=== PATIENT | female | born 1985 | race Caucasian/White ===

== ENCOUNTER 2017-06-22 15:05 | Observation (INO) | payer OTHER ==
[2017-06-22] MEDS ORDERED: NS 1,000 ML IV ONE (15:25)
[2017-06-22 15:37] LABS: PLATELET COUNT 260 10^3/uL (150-400)
--- NOTE | 2017-06-22 16:06 | EDPHY ---
H & P Time Seen by Provider: 06/22/17 15:24 HPI/ROS: CHIEF COMPLAINT: Right lower quadrant pain HISTORY OF PRESENT ILLNESS: 31-year-old female presents with right lower quadrant pain. She awoke early this morning with generalized abdominal discomfort. The discomfort gradually worsened throughout the day and then localized to the right lower quadrant. Associated with subjective fever and chills and lack of appetite. Loose stools this morning. No vomiting, UTI symptoms or vaginal discharge. 2 months , vaginal delivery without complications. REVIEW OF SYSTEMS: Eyes: No visual changes ENT: No sore throat Respiratory: No cough, no shortness of breath Cardiac: No chest pain Genitourinary: No hematuria, no dysuria Musculoskeletal: No leg pain or swelling Skin: No rash Neurological: No headache, no weakness Psychiatric: No depression Past Medical/Surgical History: Denies Social History: , 1 child Smoking Status: Never smoked Physical Exam: General Appearance: Alert, pleasant Eyes: Pupils equal and round, no conjunctival pallor ENT, Mouth: Mucous membranes moist Neck: Normal inspection Respiratory: Lungs are clear to auscultation Cardiovascular: Regular rate and rhythm Gastrointestinal: Abdomen is soft, right lower quadrant tenderness, rebound tenderness Neurological: A&O, nonfocal, normal gait Skin: Warm and dry, no rash Extremities: Normal inspection Psychiatric: Mood and affect normal Constitutional: Initial Vital Signs Temperature (C) 36.5 C 06/22/17 15:16 Heart Rate 109 H 06/22/17 15:16 Respiratory Rate 16 06/22/17 15:16 Blood Pressure 115/81 H 06/22/17 15:16 O2 Sat (%) 97 06/22/17 15:16 O2 Delivery Mode Room Air Allergies/Adverse Reactions: Anesthesia Allergy (Uncoded 06/22/17 17:34) Other-Enter Comments Home Medications: Medication Instructions Recorded Albuterol [Proventil Inhaler HFA 1 - 2 puffs IH Q4H PRN 06/22/17 (*)] Herbals/Supplements -Info Only 1 ea PO DAILY 06/22/17 Acetaminophen [Tylenol ES 500 mg 1,000 mg PO Q8HRS tab 06/23/17 (*)] Hydrocodone/APAP 5/325 [[place] 1 tab PO Q4HRS PRN #10 tab 06/23/17 5/325 (*)] Ibuprofen [Motrin (*)] 600 mg PO Q8H #30 tab 06/23/17 Sennosides/Docusate Sodium 1 tab PO BID #30 tab 06/23/17 [Senokot-S] Medical Decision Making - Diagnostics Imaging Results: Abdomen Ultrasound 06/22/17 15:25 Impression: Positive for appendicitis. Results called to Dr. Brown at 4:47 PM. Pelvic/Renal Ultrasound 06/22/17 15:25 Impression: 1. Normal pelvic sonogram. 2. Please see the appendix ultrasound report. ED Course/Re-evaluation: This patient presents with right lower quadrant pain, concerning for acute appendicitis. Stat test is negative, can rule out ectopic . IV normal saline 1 L given. The patient refuses pain medication. Ultrasound of the appendix and pelvis ordered. Ultrasound reveals acute appendicitis. Cefoxitin [address] oMre was consulted and will take the pt to the OR. Differential Diagnosis: Differential diagnosis includes though it is not limited to ectopic , ovarian cyst, ovarian torsion, PID, UTI, appendicitis. - Data Points Laboratory Results: Laboratory Results 06/22/17 15:30 06/22/17 15:30 Medications Given: Discontinued Medications Acetaminophen (Tylenol) 1,000 mg PO Q8HRS BRADY Stop: 12/19/17 21:59 Last Admin: 06/23/17 06:52 Dose: 1,000 mg Hydrocodone Bitart/Acetaminophen ([place] 5/325) 1 tab PO Q4HRS PRN PRN Reason: Pain, Moderate Able to Take PO Stop: 07/02/17 21:40 Last Admin: 06/23/17 12:16 Dose: 1 tab Albuterol (Proventil Neb) 3 ml IH ONCALL ONE Stop: 06/22/17 20:46 Last Admin: 06/22/17 20:08 Dose: 3 ml Bupivacaine HCl (Sensorcaine 0.25% Sdv) Confirm Administered Dose 30 ml .ROUTE .STK-MED ONE Stop: 06/22/17 21:45 Last Admin: 06/23/17 06:56 Dose: Not Given Enoxaparin Sodium (Lovenox) 40 mg SC DAILY BRADY Stop: 12/20/17 08:59 Last Admin: 06/23/17 09:32 Dose: 40 mg Sodium Chloride (Ns) 1,000 mls @ 0 mls/hr IV EDNOW ONE; Wide Open PRN Reason: Protocol Stop: 06/22/17 15:26 Last Admin: 06/22/17 15:34 Dose: 1,000 mls Cefoxitin Sodium 1 gm/ Sterile (Water) 10.5 mls @ 126 mls/hr IV EDNOW ONE PRN Reason: Protocol Stop: 06/22/17 17:05 Last Admin: 06/22/17 17:57 Dose: 10.5 mls Lactated Ringer's (Lr) 1,000 mls @ 0 mls/hr IV ONCE ONE PRN Reason: Per Protocol Stop: 06/22/17 19:28 Last Admin: 06/22/17 19:59 Dose: 1,000 mls Cefoxitin Sodium 1 gm/ Sterile (Water) 10.5 mls @ 126 mls/hr IV Q6HRS BRADY PRN Reason: Protocol Stop: 06/23/17 12:04 Last Admin: 06/23/17 12:52 Dose: 10.5 mls Ibuprofen (Motrin) 600 mg PO Q8H [facility] Stop: 12/20/17 01:59 Last Admin: 06/23/17 06:57 Dose: 600 mg Ketorolac Tromethamine (Toradol) 30 mg IVP ONCE ONE Stop: 06/22/17 21:39 Last Admin: 06/22/17 21:33 Dose: 30 mg Midazolam HCl (Versed) 2 mg IVP ONCALL ONE Stop: 06/22/17 20:03 Last Admin: 06/22/17 20:22 Dose: 2 mg Senna/Docusate Sodium (Senokot-S) 1 tab PO BID [facility] Stop: 12/19/17 21:44 Last Admin: 06/23/17 09:35 Dose: 1 tab Departure - Departure Disposition: [facility] Acute Clinical Impression: Acute appendicitis Qualifiers: Acute appendicitis type: with generalized peritonitis Qualified Code(s): K35.2 - Acute appendicitis with generalized peritonitis Condition: Good
[2017-06-22] MEDS ORDERED: ERTAPENEM 1 GM VIAL IVP ONE (16:54)
[2017-06-22] MEDS ORDERED: cefOXitin SODIUM 1 GM in STERILE WATER INJ 10.5 ML IV ONE (17:01)
[2017-06-22] MEDS ORDERED: LR 1,000 ML IV ONE (19:27)
--- NOTE | 2017-06-22 19:31 | PDGENHP ---
History and Physical - Chief Complaint abd pain - History of Present Illness 31 y/o female with abd pain starting this morning. Pain localized to the RLQ and she presented to the ED for evaluation. She was seen by Dr. Brown. Her wbc was elevated at 12K and an abdominal ultrasound showed a 7.2 mm non- compressible tubular structure compatible with an early appendicitis. Surgical Consult was requested History Information - Allergies/Home Medication List Allergies/Adverse Reactions: Anesthesia Allergy (Uncoded 06/22/17 17:34) Other-Enter Comments Home Medications: Albuterol [Proventil Inhaler HFA (*)] 1 - 2 puffs IH Q4H PRN 06/22/17 [Last Taken 06/21/17] Herbals/Supplements -Info Only 1 ea PO DAILY 06/22/17 [Last Taken 06/22/17] I have personally reviewed and updated: family history, medical history, social history, surgical history - Past Medical History asthma Additional medical history: patient is 7 weeks post and nursing - Surgical History Additional surgical history: ACL repair/required 5 day hospital stay after this surgery for nausea and vomiting - Social History Smoking Status: Never smoked Alcohol Use: Rarely Drug Use: None Review of Systems Review of Systems: Constitutional: Reports: chills, fever Respiratory: Reports: other (increased pain with deep inspiration) Gastrointestinal: Reports: abdominal pain, abdominal distention, nausea Genitourinary: Reports: no symptoms Physical Exam Physical Exam: Temp Pulse Resp BP Pulse Ox 37.8 C 78 16 122/75 H 98 06/22/17 18:00 06/22/17 18:00 06/22/17 18:00 06/22/17 18:00 06/22/17 18:00 Constitutional: uncomfortable Eyes: PERRL, EOMI, other (no adenopathy) Cardiovascular: no murmur, rub, or gallop, systolic murmur Respiratory: no respiratory distress, no rales or rhonchi, clear to auscultation Gastrointestinal: no palpable masses, tenderness (RLQ with guarding, + Rovsing's ), other Skin: warm Lab Data & Imaging Review 06/22/17 15:30 06/22/17 15:30 WBC 12.20 10^3/uL (3.80-9.50) H 06/22/17 15:30 RBC 4.91 10^6/uL (4.18-5.33) 06/22/17 15:30 Hgb 15.2 g/dL (12.6-16.3) 06/22/17 15:30 Hct 43.5 % (38.0-47.0) 06/22/17 15:30 MCV 88.6 fL (81.5-99.8) 06/22/17 15:30 MCH 31.0 pg (27.9-34.1) 06/22/17 15: MCHC 34.9 g/dL (32.4-36.7) 06/22/17 15:30 RDW 13.1 % (11.5-15.2) 06/22/17 15:30 Plt Count 260 10^3/uL (150-400) 06/22/17 15:30 MPV 9.7 fL (8.7-11.7) 06/22/17 15:30 Neut % (Auto) 86.0 % (39.3-74.2) H 06/22/17 15:30 Lymph % (Auto) 5.7 % (15.0-45.0) L 06/22/17 15:30 [place] % (Auto) 7.5 % (4.5-13.0) 06/22/17 15:30 Eos % (Auto) 0.1 % (0.6-7.6) L 06/22/17 15:30 Baso % (Auto) 0.2 % (0.3-1.7) L 06/22/17 15:30 Nucleat RBC Rel Count 0.0 % (0.0-0.2) 06/22/17 15:30 Absolute Neuts (auto) 10.48 10^3/uL (1.70-6.50) H 06/22/17 15:30 Absolute Lymphs (auto) 0.70 10^3/uL (1.00-3.00) L 06/22/17 15:30 Absolute Monos (auto) 0.92 10^3/uL (0.30-0.80) H 06/22/17 15:30 Absolute Eos (auto) 0.01 10^3/uL (0.03-0.40) L 06/22/17 15:30 Absolute Basos (auto) 0.03 10^3/uL (0.02-0.10) 06/22/17 15:30 Absolute Nucleated RBC 0.00 10^3/uL (0-0.01) 06/22/17 15:30 Immature Gran % 0.5 % (0.0-1.1) 06/22/17 15:30 Immature Gran # 0.06 10^3/uL (0.00-0.10) 06/22/17 15:30 Sodium 139 mEq/L (135-145) 06/22/17 15:30 Potassium 3.9 mEq/L (3.5-5.2) 06/22/17 15:30 Chloride 105 mEq/L (97-110) 06/22/17 15:30 Carbon Dioxide 22 mEq/l (22-31) 06/22/17 15:30 Anion Gap 12 mEq/L (8-16) 06/22/17 15:30 BUN 12 mg/dL (7-23) 06/22/17 15:30 Creatinine 0.8 mg/dL (0.6-1.0) 06/22/17 15:30 Estimated GFR > 60 06/22/17 15:30 Glucose 103 mg/dL (70-100) H 06/22/17 15:30 Calcium 9.4 mg/dL (8.5-10.4) 06/22/17 15:30 Beta HCG, Qual NEGATIVE 06/22/17 15:30 Visualized and Interpreted imaging results: Yes Interpretation: non-compressible tubular structure RLQ 7.2 mm Assessment & Plan Assessment: 1. Abdominal pain, most consistant with appendicitis 2. post 3. hx post op nausea/vomiting 4. hx asthma Rec: to OR for lap appendectomy. we discussed the procedure, risks and expected recovery. Informed consent was obtained. Dr. Brown has ordered pre-op Mefoxin 2 gm which I agree is appropriate coverage.
--- NOTE | 2017-06-22 19:40 | PDANEPAE ---
ANE History of Present Illness appendicitis ANE Past Medical History - Cardiovascular History Hx Hypertension: No Hx Arrhythmias: No Hx Chest Pain: No Hx Coronary Artery / Peripheral Vascular Disease: No Hx CHF / Valvular Disease: No Hx Palpitations: No - Pulmonary History Hx Asthma/Reactive Airway Disease: Yes Hx Oxygen in Use at Home: No Pulmonary History Comment: asthma since high school - Endocrine History Hx Diabetes: No Hypothyroid: No Hyperthyroid: No Obesity: no - Renal History Hx Renal Disorders: No - Liver History Hx Hepatic Disorders: No - Other Health History Other Health History: pt. reports hx of "low blood glucose" - Chronic Pain History Chronic Pain: No ANE Review of Systems Review of Systems: - Exercise capacity METS (RN): 4 METS ANE Patient History - Allergies Allergies/Adverse Reactions: Anesthesia Allergy (Uncoded 06/22/17 17:34) Other-Enter Comments - Home Medications Home Medications: Albuterol [Proventil Inhaler HFA (*)] 1 - 2 puffs IH Q4H PRN 06/22/17 [Last Taken 06/21/17] Herbals/Supplements -Info Only 1 ea PO DAILY 06/22/17 [Last Taken 06/22/17] - NPO status NPO Since - Liquids (Date): 06/22/17 NPO Since - Liquids (Time): 15:00 NPO Since - Solids (Date): 06/22/17 NPO Since - Solids (Time): 14:00 - Anes Hx Hx Anesthesia Complications (with details): Pt. reports being unable to eat for 5 days after general anesthesia for ACL repair - Smoking Hx Smoking Status: Never smoked Marijuana use: No - Alcohol Use Alcohol Use: None - Family Anes Hx Family Anes Hx: none ANE Labs/Vital Signs - Labs Result Diagrams: 06/22/17 15:30 06/22/17 15:30 - Vital Signs Blood Pressure: 131/77 Heart Rate: 66 Respiratory Rate: 16 O2 Sat (%): 96 Height: 165.1 cm Weight: 64 kg ANE Physical Exam - Airway Neck exam: FROM - ASA Status ASA Status: II, E ANE Anesthesia Plan Anesthesia Plan: general endotracheal anesthesia
[2017-06-22] MEDS ORDERED: MIDAZOLAM 2 MG/2 ML VIAL IVP ONE (20:02)
[2017-06-22] MEDS ORDERED: ALBUTEROL 3 ML DEYVIAL ONE (20:06)
[2017-06-22] MEDS ORDERED: MIDAZOLAM 2 MG/2 ML VIAL ONE (20:07)
[2017-06-22] MEDS ORDERED: ALBUTEROL 60 PUFFS/8 GM MDI IH PRN (20:09)
[2017-06-22] MEDS ORDERED: fentaNYL 250 MCG/5 ML INJ ONE (20:09)
[2017-06-22] MEDS ORDERED: PROPOFOL 200 MG/20 ML VIAL ONE ×2 (20:09)
[2017-06-22] MEDS ORDERED: ROCURONIUM 50 MG/5 ML VIAL ONE (20:09)
[2017-06-22] MEDS ORDERED: DEXAMETHASONE 4 MG/ML VIAL ONE (20:10)
[2017-06-22] MEDS ORDERED: ALBUTEROL 3 ML DEYVIAL IH ONE (20:45)
[2017-06-22] MEDS ORDERED: ONDANSETRON 4 MG/2 ML VIAL ONE (21:08)
[2017-06-22] MEDS ORDERED: NEOSTIGMINE METHYLSULFATE 3 MG/3 ML SYR ONE (21:15)
[2017-06-22] MEDS ORDERED: GLYCOPYRROLATE 0.2 MG/1 ML VIAL ONE (21:16)
[2017-06-22] MEDS ORDERED: KETOROLAC 30 MG/1 ML SDV ONE (21:35)
[2017-06-22] MEDS ORDERED: ONDANSETRON 4 MG/2 ML VIAL IVP PRN (21:36)
[2017-06-22] MEDS ORDERED: fentaNYL 100 MCG/2 ML INJ IVP PRN (21:36)
[2017-06-22] MEDS ORDERED: HYDROmorphONE/DILAUDID 2 MG/ML INJ IVP PRN (21:36)
[2017-06-22] MEDS ORDERED: NALOXONE HCL 0.4 MG/ML INJ IVP PRN (21:36)
[2017-06-22] MEDS ORDERED: HYDROmorphone HCL/NS 0.5 MG/ML SYR IVP PRN (21:37)
--- NOTE | 2017-06-22 21:37 | POSTOPPROG ---
Post Op Note Date of Operation: 06/22/17 Surgeon: Musa More (, FACS) Anesthesiologist: Florin Patricia MD Anesthesia: GET(General Endotracheal) Pre-op Diagnosis: appendicitis Post-op Diagnosis: same Procedure: lap appendectomy Findings: acute appendicitis Inf/Abcess present in the surg proc area at time of surgery?: Yes Depth: Organ Space EBL: Minimal Complications: none Specimen(s): appendix
[2017-06-22] MEDS ORDERED: KETOROLAC 30 MG/1 ML SDV IVP ONE (21:38)
[2017-06-22] MEDS ORDERED: HYDROCODONE/APAP 5/325 TAB PO PRN (21:41)
[2017-06-22] MEDS ORDERED: BUPIVACAINE 0.25% 30 ML SDV ONE (21:44)
[2017-06-22] MEDS ORDERED: LR 1,000 ML IV SCH (22:00)
[2017-06-22] MEDS: ACETAMINOPHEN 500 MG TAB PO SCH (22:00)
[2017-06-22] MEDS ORDERED: ACETAMINOPHEN 500 MG TAB ONE (22:00)
[2017-06-22] MEDS: SENNOSIDES/DOCUSATE SODIUM TAB PO SCH (22:52)
--- NOTE | 2017-06-22 23:09 | POSTANESTH ---
Post Anesthetic Evaluation Cardiovascular Status: Normal, Stable Respiratory Status: Similar to Pre-op Cond. Level of Consciousness/Mental Status: Can Participate in Eval Pain Control: Adequate, Prn Tx Ordered Nausea/Vomiting Control: Adequate, Prn Tx Ordered Complications Possibly Related to Anesthesia: None Noted
[2017-06-23] MEDS: cefOXitin SODIUM 1 GM in STERILE WATER INJ 10.5 ML IV SCH ×3 (01:46→12:52)
[2017-06-23] MEDS: IBUPROFEN 600 MG TAB PO SCH ×4 (02:16→12:54)
--- NOTE | 2017-06-23 06:37 | PDCONSULT ---
Drill Sharpener Operator Note: Kassandra is resting comfortably on the Labor and Delivery cruz. She is tolerating soft food without nausea and has good pain control Her surgical sites appear uncomplicated We discussed diet, activity and wound care with her in attendance Rx written for [place] #[id number] ( No Rx printer on L and D) placed on chart DC home later today and FU my office next week. med reconciliation completed Domenico More MD, FACS
[2017-06-23] MEDS: ACETAMINOPHEN 500 MG TAB PO SCH (06:52)
--- NOTE | 2017-06-23 08:21 | GOP ---
[f rep st] OPERATIVE REPORT DATE OF OPERATION: 06/22/2017 SURGEON: Musa More MD, FACS ANESTHESIA: General endotracheal. ANESTHESIOLOGIST: Florin Patricia MD. PREOPERATIVE DIAGNOSIS: Acute appendicitis. POSTOPERATIVE DIAGNOSIS: Acute appendicitis. PROCEDURE PERFORMED: Laparoscopic appendectomy. FINDINGS: Early acute retrocecal appendicitis without evidence of perforation or gangrene. ESTIMATED BLOOD LOSS: 10 cc. DESCRIPTION OF PROCEDURE: After informed consent was obtained, the patient was brought to the operating room and placed under general anesthesia. The abdomen was prepped and draped in the usual fashion. Before proceeding, a time-out and identification of the patient was performed. Marcaine 0.25% was used to infiltrate all incision sites. A longitudinal incision was made through the base of the umbilicus and carried through skin and subcutaneous tissues. Ventral traction was applied to the abdominal wall with penetrating towel clamp and a Veress needle introduced into the peritoneal cavity. Position was confirmed by saline infusion. A pneumoperitoneum was established with CO2 gas to a pressure of 15 mmHg. The Veress needle was withdrawn and replaced with a 5 mm bladeless trocar. A 30 degree scope was introduced and the peritoneal cavity was visualized. Additional 5 mm ports were placed in the suprapubic position and a 12 mm port was placed in the left lower quadrant, both under direct visualization. This allowed introduction of atraumatic grasping forceps, which were used to manipulate the cecum and terminal ileum. The appendix was not immediately identifiable. The cecum was rotated medially and revealed a retrocecal appendix. It was grasped and dissected from the surrounding tissues by incising the peritoneum and mobilizing the colon medially. The mesoappendix was taken down with the Harmonic Scalpel and the appendix from the cecum at the base with a single firing of the KIERSTEN 35 stapler. Hemostasis appeared secure. The appendix was retrieved through the left lower quadrant port site using Endo pouch. The operative field appeared hemostatic. The left lower quadrant port site was closed with a single transfascial 0 Vicryl suture. The pneumoperitoneum was then evacuated and the remaining ports were removed. Subcutaneous tissues were approximated with 3-0 Monocryl suture. Skin was closed with 4-0 Monocryl suture in subcuticular fashion. Mastisol, Steri-Strips and sterile dressings were applied. Needle, sponge, and instrument counts were correct. COMPLICATIONS: None. /[id number]/MODL MTDD
[2017-06-23 08:23] VITALS: BP 97/56; PULSE 68; RESP 14; TEMP 98.2; O2SAT 96
[2017-06-23] MEDS ORDERED: ENOXAPARIN 40 MG/0.4 ML SYR SC SCH (09:00)
[2017-06-23] MEDS: SENNOSIDES/DOCUSATE SODIUM TAB PO SCH (09:35)
== END 2017-06-23 13:50 | disposition home or self-care (01) ==
LOC: FLD 23:13
PROVIDERS: ADMIT Surgery; ATTEND Surgery
PROC: 0DTJ4ZZ Resection of Appendix, Percutaneous Endoscopic Approach (ICD-10-PCS; principal; 2017-06-22 20:00)
DX: K35.80 Unspecified acute appendicitis (principal)
CPT/HCPCS: 96374; G0378; J0694; J1100; J1650; J1885; J2250; J2405; J2704; J2710; J3010; J7613